=== PATIENT | female | born 2000 | race African-American/Black ===

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

== ENCOUNTER 2020-01-14 13:51 | Emergency (ER) | payer MEDICAID ==
[~2020-01-14] VITALS: Ht 157.5 cm; Wt 72.0 kg
[2020-01-14] MEDS ORDERED: SODIUM CHLORIDE 0.9% 1,000 ML IV ONE ×2 (15:47→17:00)
[2020-01-14] MEDS ORDERED: ONDANSETRON HCL 4MG/2ML INJ IV ONE ×2 (16:00)
[2020-01-14 16:08] LABS: BASOPHILS % 0.1 % (0.0-2.0); HEMOGLOBIN. 13.2 g/dL (12.0-16.0); LYMPHOCYTES % 8.8 % (20.0-50.0); MEAN CORPUSCULAR HEMOGLOBIN 31.5 pg (28.0-32.0); MEAN CORPUSCULAR VOLUME 87.9 fL (81.0-99.0); MEAN PLATELET VOLUME 9.5 fl (7.4-10.4); MONOCYTES % 3.1 % (2.0-8.0); PLATELET 186 x1000/uL (130-400); RED CELL DISTRIBUTION WIDTH 13.4 % (11.6-14.6)
[2020-01-14 16:12] LABS: CHLORIDE 104 mEq/L (98-107)
[2020-01-14 18:29] VITALS: BP 101/68
[2020-01-14 18:37] LABS: CLARITY URINE CLEAR (CLEAR); COLOR URINE YELLOW (YELLOW); KETONES URINE 4+ (NEGATIVE); LEUKOCYTE ESTERASE URINE NEGATIVE (NEGATIVE); NITRITE URINE NEGATIVE (NEGATIVE); OCCULT BLOOD URINE NEGATIVE (NEGATIVE); PH URINE 5.5 (4.5-8.0); PROTEIN URINE 1+ (NEGATIVE)
[2020-01-14 18:52] LABS: *AMPHETAMINES SCREEN URINE NEGATIVE (NEGATIVE); *BARBITURATES SCREEN URINE NEGATIVE (NEGATIVE); *BENZODIAZEPINES SCREEN URINE NEGATIVE (NEGATIVE); *COCAINE SCREEN URINE NEGATIVE (NEGATIVE); METHADONE URINE SCREEN NEGATIVE (NEGATIVE); OPIATES URINE SCREEN NEGATIVE (NEGATIVE); PHENCYCLIDINE URINE SCREEN NEGATIVE (NEGATIVE)
[2020-01-14 18:53] LABS: CANNABINOID URINE SCREEN NEGATIVE (NEGATIVE)
== END 2020-01-14 19:07 | disposition home or self-care (01) ==
LOC: ER 13:51
DX: O21.0 Mild hyperemesis gravidarum (principal); O26.891 Other specified pregnancy related conditions, first trimester; F19.10 Other psychoactive substance abuse, uncomplicated; Z3A.12 12 weeks gestation of pregnancy
CPT/HCPCS: 36415; 76801; 80053; 80305; 81003; 81025; 85025; 96361; 96374; 96376; 99284; J2405; J7030

== ENCOUNTER 2020-01-22 15:33 | Inpatient (IN) | payer MEDICAID ==
[~2020-01-22] VITALS: Ht 157.5 cm; Wt 55.8 kg
[2020-01-22] MEDS ORDERED: SODIUM CHLORIDE 0.9% 1,000 ML IV ONE (16:52)
[2020-01-22] MEDS: PYRIDOXINE HCL 50MG TABLET PO ONE ×2 (18:26→19:42)
[2020-01-22 18:47] LABS: HEMOGLOBIN. 13.8 g/dL (12.0-16.0); MEAN CORPUSCULAR HEMOGLOBIN 31.4 pg (28.0-32.0); MEAN CORPUSCULAR VOLUME 88.7 fL (81.0-99.0); MEAN PLATELET VOLUME 9.8 fl (7.4-10.4); PLATELET 218 x1000/uL (130-400); RED BLOOD CELL COUNT 4.39 mill/uL (4.2-5.4); RED CELL DISTRIBUTION WIDTH 13.9 % (11.6-14.6)
[2020-01-22 18:55] LABS: CHLORIDE 104 mEq/L (98-107); INR 1.1; PROTHROMBIN TIME 11.6 sec (9.6-11.0)
[2020-01-22 19:08] LABS: HCG SCREEN POSITIVE
[2020-01-22 19:38] LABS: CLARITY URINE CLEAR (CLEAR); COLOR URINE YELLOW (YELLOW); KETONES URINE 4+ (NEGATIVE); LEUKOCYTE ESTERASE URINE NEGATIVE (NEGATIVE); NITRITE URINE NEGATIVE (NEGATIVE); OCCULT BLOOD URINE TRACE (NEGATIVE); PH URINE 5.5 (4.5-8.0); PROTEIN URINE 1+ (NEGATIVE); SPECIFIC GRAVITY URINE 1.026 (1.005-1.030)
[2020-01-22 20:42] LABS: PLATELET ESTIMATE NORMAL
[2020-01-22] MEDS ORDERED: METOCLOPRAMIDE HCL 10MG/2ML VIAL IV ONE (21:00)
[2020-01-22] MEDS ORDERED: IPRATROPIUM/ALBUTEROL 0.5-3(2.5)MG/3ML NEB NEB PRN (22:45)
[2020-01-22] MEDS ORDERED: ACETAMINOPHEN 325MG TABLET PO PRN ×2 (22:45)
[2020-01-22] MEDS ORDERED: ONDANSETRON HCL 4MG/2ML INJ IV PRN (22:45)
[2020-01-22] MEDS ORDERED: DEXT 5%/0.9% NACL 1,000 ML IV SCH (23:00)
[2020-01-22 23:50] VITALS: BP 111/60
[2020-01-23] MEDS ORDERED: FERR325T6 MT (04:00)
[2020-01-23] MEDS ORDERED: FOLI0.4T2 MT (04:00)
[2020-01-23] MEDS: DEXT 5%/LACTATED RINGERS 1,000 ML IV SCH ×3 (06:32→23:56)
[2020-01-23 08:00] VITALS: BP 86/52
[2020-01-23] MEDS: PRENATAL VIT/FE FUMARATE/FA TABLET PO SCH (09:00)
[2020-01-23] MEDS: ONDANSETRON HCL 4MG/2ML INJ IV PRN ×2 (10:56→17:58)
[2020-01-23 10:59] LABS: BASOPHILS % 0.6 % (0.0-2.0); EOSINOPHILS % 0.2 % (0.0-5.0); HEMATOCRIT. 30.5 % (36.0-48.0); HEMOGLOBIN. 10.9 g/dL (12.0-16.0); LYMPHOCYTES % 14.2 % (20.0-50.0); MEAN CORPUSCULAR HEMOGLOBIN 31.3 pg (28.0-32.0); MEAN CORPUSCULAR VOLUME 87.3 fL (81.0-99.0); MEAN PLATELET VOLUME 9.2 fl (7.4-10.4); MONOCYTES % 7.7 % (2.0-8.0); NEUTROPHILS % 77.3 % (40.0-76.0); PLATELET 169 x1000/uL (130-400); RED BLOOD CELL COUNT 3.49 mill/uL (4.2-5.4)
[2020-01-23 11:37] LABS: CHLORIDE 111 mEq/L (98-107)
[2020-01-23 12:00] VITALS: BP 92/55
[2020-01-23 15:54] LABS: CLARITY URINE CLEAR (CLEAR); COLOR URINE DK YELLOW (YELLOW); KETONES URINE 1+ (NEGATIVE); LEUKOCYTE ESTERASE URINE NEGATIVE (NEGATIVE); NITRITE URINE NEGATIVE (NEGATIVE); OCCULT BLOOD URINE TRACE (NEGATIVE); PH URINE 5.5 (4.5-8.0); PROTEIN URINE NEGATIVE (NEGATIVE); SPECIFIC GRAVITY URINE 1.014 (1.005-1.030)
[2020-01-23 16:00] VITALS: BP 92/47
[2020-01-23 16:27] LABS: *AMPHETAMINES SCREEN URINE NEGATIVE (NEGATIVE); *BARBITURATES SCREEN URINE NEGATIVE (NEGATIVE); *BENZODIAZEPINES SCREEN URINE NEGATIVE (NEGATIVE); *COCAINE SCREEN URINE NEGATIVE (NEGATIVE)
[2020-01-23 16:28] LABS: CANNABINOID URINE SCREEN NEGATIVE (NEGATIVE); METHADONE URINE SCREEN NEGATIVE (NEGATIVE); OPIATES URINE SCREEN NEGATIVE (NEGATIVE); PHENCYCLIDINE URINE SCREEN NEGATIVE (NEGATIVE)
[2020-01-23 20:00] VITALS: BP 92/48
[2020-01-23] MEDS: POTASSIUM CHLORIDE INJ 40 MEQ in DEXT 5% WATER 500 ML IV NR ×2 (21:36→22:00)
[2020-01-24] VITALS: BP 96/45
[2020-01-24] MEDS ORDERED: POTASSIUM CHLORIDE 20MEQ TABLET SR PO SCH
[2020-01-24] MEDS: ONDANSETRON HCL 4MG/2ML INJ IV PRN ×2 (00:18→06:35)
[2020-01-24 04:00] VITALS: BP 92/47
[2020-01-24] MEDS: DEXT 5%/LACTATED RINGERS 1,000 ML IV SCH (06:36)
[2020-01-24 08:00] VITALS: BP 92/46
[2020-01-24] MEDS: PRENATAL VIT/FE FUMARATE/FA TABLET PO SCH (09:00)
[2020-01-24 09:39] VITALS: BP 92/46
== END 2020-01-24 11:20 | disposition home or self-care (01) | DRG 566 ==
LOC: ER 15:33 → 6EST 22:45 → EDBEDREQSVC 22:46 → EDBEDREQTM 22:46 → ENRESERV 23:04
PROVIDERS: ADMIT Internal Medicine; ATTEND Internal Medicine
DX: O21.1 Hyperemesis gravidarum with metabolic disturbance (principal); E80.4 Gilbert syndrome; O26.892 Other specified pregnancy related conditions, second trimester; Z3A.14 14 weeks gestation of pregnancy; Z83.3 Family history of diabetes mellitus; Z80.9 Family history of malignant neoplasm, unspecified; E86.0 Dehydration; E44.1 Mild protein-calorie malnutrition; R82.998 Other abnormal findings in urine
CPT/HCPCS: 36415; 76805; 80053; 80305; 81003; 83036; 83605; 84703; 85025; 86850; 86900; 93005; 96374; 99285; J2405; J2765; J3480; J7030; J7060; J7121

== ENCOUNTER 2020-01-31 09:21 | Emergency (ER) | payer MEDICAID ==
[~2020-01-31] VITALS: Ht 157.5 cm; Wt 57.0 kg
[~2020-01-31 09:21] MED LIST: FERR325T6 MT; FOLI0.4T2 MT
[2020-01-31 09:25] VITALS: BP 104/63
[2020-01-31] MEDS ORDERED: SODIUM CHLORIDE 0.9% 1,000 ML IV ONE ×2 (09:53→11:45)
[2020-01-31] MEDS ORDERED: ONDANSETRON HCL 4MG/2ML INJ IV ONE (10:00)
[2020-01-31 10:10] LABS: CLARITY URINE CLEAR (CLEAR); COLOR URINE DK YELLOW (YELLOW); KETONES URINE 4+ (NEGATIVE); LEUKOCYTE ESTERASE URINE NEGATIVE (NEGATIVE); NITRITE URINE NEGATIVE (NEGATIVE); OCCULT BLOOD URINE NEGATIVE (NEGATIVE); PROTEIN URINE 1+ (NEGATIVE); SPECIFIC GRAVITY URINE 1.024 (1.005-1.030)
[2020-01-31 10:41] LABS: BASOPHILS % 0.4 % (0.0-2.0); HEMATOCRIT. 38.4 % (36.0-48.0); HEMOGLOBIN. 13.7 g/dL (12.0-16.0); LYMPHOCYTES % 11.4 % (20.0-50.0); MEAN CORPUSCULAR HEMOGLOBIN 31.3 pg (28.0-32.0); MEAN CORPUSCULAR VOLUME 87.5 fL (81.0-99.0); MEAN PLATELET VOLUME 10.1 fl (7.4-10.4); MONOCYTES % 4.5 % (2.0-8.0); NEUTROPHILS % 83.7 % (40.0-76.0); PLATELET 238 x1000/uL (130-400); RED BLOOD CELL COUNT 4.39 mill/uL (4.2-5.4)
[2020-01-31 10:50] LABS: CHLORIDE 107 mEq/L (98-107)
[2020-01-31 11:13] LABS: B-HCG QUANTITATIVE 31628 mIU/mL (<3)
[2020-01-31] MEDS ORDERED: POTASSIUM CHLORIDE 20MEQ TABLET SR PO ONE (11:30)
[2020-01-31] MEDS ORDERED: MAGNESIUM/ALUMINUM HYDROXIDE/SIMETHICONE 30ML UDC PO ONE (11:45)
[2020-01-31] MEDS ORDERED: METOCLOPRAMIDE HCL 10MG/2ML VIAL IV ONE (11:45)
== END 2020-01-31 12:18 | disposition home or self-care (01) ==
LOC: ER 09:21
DX: O21.0 Mild hyperemesis gravidarum (principal); O26.892 Other specified pregnancy related conditions, second trimester; E87.6 Hypokalemia; Z3A.15 15 weeks gestation of pregnancy
CPT/HCPCS: 36415; 76805; 80053; 81003; 81025; 84702; 85025; 93005; 96374; 96375; 99285; J2405; J2765; J7030

== ENCOUNTER 2020-02-14 09:28 | Inpatient (IN) | payer MEDICAID ==
[~2020-02-14] VITALS: Ht 157.5 cm; Wt 54.4 kg
[2020-02-14] MEDS ORDERED: SODIUM CHLORIDE 0.9% 1,000 ML IV ONE ×2 (11:17→13:15)
[2020-02-14] MEDS ORDERED: ONDANSETRON HCL 4MG/2ML INJ IV STA (11:17)
[2020-02-14 11:54] LABS: CLARITY URINE CLEAR (CLEAR); COLOR URINE YELLOW (YELLOW); KETONES URINE 4+ (NEGATIVE); LEUKOCYTE ESTERASE URINE NEGATIVE (NEGATIVE); NITRITE URINE NEGATIVE (NEGATIVE); OCCULT BLOOD URINE NEGATIVE (NEGATIVE); PH URINE 5.5 (4.5-8.0); PROTEIN URINE 1+ (NEGATIVE)
[2020-02-14 11:58] LABS: BASOPHILS % 0.2 % (0.0-2.0); HEMATOCRIT. 35.3 % (36.0-48.0); HEMOGLOBIN. 12.6 g/dL (12.0-16.0); LYMPHOCYTES % 12.1 % (20.0-50.0); MEAN CORPUSCULAR HEMOGLOBIN 32.3 pg (28.0-32.0); MEAN CORPUSCULAR VOLUME 90.5 fL (81.0-99.0); MEAN PLATELET VOLUME 9.7 fl (7.4-10.4); MONOCYTES % 4.2 % (2.0-8.0); NEUTROPHILS % 83.5 % (40.0-76.0); PLATELET 197 x1000/uL (130-400); RED CELL DISTRIBUTION WIDTH 14.2 % (11.6-14.6)
[2020-02-14 12:02] LABS: CHLORIDE 104 mEq/L (98-107)
[2020-02-14 12:08] LABS: INR 1.1; PROTHROMBIN TIME 11.1 sec (9.6-11.0)
[2020-02-14 13:08] LABS: *BENZODIAZEPINES SCREEN URINE NEGATIVE (NEGATIVE); CANNABINOID URINE SCREEN NEGATIVE (NEGATIVE); METHADONE URINE SCREEN NEGATIVE (NEGATIVE); OPIATES URINE SCREEN NEGATIVE (NEGATIVE); PHENCYCLIDINE URINE SCREEN NEGATIVE (NEGATIVE)
[2020-02-14 13:09] LABS: *AMPHETAMINES SCREEN URINE NEGATIVE (NEGATIVE); *BARBITURATES SCREEN URINE NEGATIVE (NEGATIVE)
[2020-02-14 13:13] LABS: HCG SCREEN POSITIVE
[2020-02-14] MEDS ORDERED: ONDANSETRON HCL 4MG/2ML INJ IV ONE (13:15)
[2020-02-14 13:16] LABS: *COCAINE SCREEN URINE NEGATIVE (NEGATIVE)
[2020-02-14 16:50] VITALS: BP 104/54
[2020-02-14 16:51] VITALS: BP 104/54
[2020-02-14] MEDS ORDERED: MAGNESIUM/ALUMINUM HYDROXIDE/SIMETHICONE 30ML UDC PO PRN (17:15)
[2020-02-14] MEDS ORDERED: GUAIFENESIN 200MG/10ML SUGAR FREE UDC PO PRN (17:15)
[2020-02-14] MEDS ORDERED: CLONIDINE 0.1MG TABLET PO PRN (17:15)
[2020-02-14] MEDS ORDERED: ACETAMINOPHEN 325MG TABLET PO PRN (17:15)
[2020-02-14] MEDS ORDERED: DOCUSATE SODIUM 100MG CAPSULE PO PRN (17:15)
[2020-02-14] MEDS: DEXT 5%/0.45% NACL 1000ML 1,000 ML IV SCH (18:01)
[2020-02-14] MEDS: METOCLOPRAMIDE HCL 10MG/2ML VIAL IV SCH (18:01)
[2020-02-14 20:00] VITALS: BP 88/41
[2020-02-14] MEDS: SODIUM CHLORIDE 0.9% INJ 3ML FLUSH IVF SCH (21:50)
[2020-02-15] VITALS (7 sets, daily range): BP systolic 79–90; BP diastolic 31–59
[2020-02-15] MEDS: METOCLOPRAMIDE HCL 10MG/2ML VIAL IV SCH ×3 (00:16→12:12)
[2020-02-15] MEDS: DEXT 5%/0.45% NACL 1000ML 1,000 ML IV SCH ×2 (03:21→12:12)
[2020-02-15] MEDS: SODIUM CHLORIDE 0.9% INJ 3ML FLUSH IVF SCH ×2 (05:53→12:13)
[2020-02-15 16:07] LABS: BASOPHILS % 0.2 % (0.0-2.0); EOSINOPHILS % 0.6 % (0.0-5.0); HEMATOCRIT. 27.5 % (36.0-48.0); HEMOGLOBIN. 9.8 g/dL (12.0-16.0); LYMPHOCYTES % 21.9 % (20.0-50.0); MEAN CORPUSCULAR HEMOGLOBIN 32.3 pg (28.0-32.0); MEAN PLATELET VOLUME 9.7 fl (7.4-10.4); MONOCYTES % 6.4 % (2.0-8.0); NEUTROPHILS % 70.9 % (40.0-76.0); PLATELET 148 x1000/uL (130-400); RED BLOOD CELL COUNT 3.02 mill/uL (4.2-5.4); RED CELL DISTRIBUTION WIDTH 14.4 % (11.6-14.6)
[2020-02-15 16:26] LABS: CHLORIDE 108 mEq/L (98-107)
== END 2020-02-15 16:05 | disposition home or self-care (01) | DRG 566 ==
LOC: ER 09:28 → EDBEDREQ 13:16 → EDBEDREQTM 13:16 → 5WST 14:15 → EDBEDREQTM 14:17 → EDBEDREQ 14:17 → ENRESERV 15:06
PROVIDERS: ADMIT Internal Medicine; ATTEND Internal Medicine
DX: O21.1 Hyperemesis gravidarum with metabolic disturbance (principal); O99.282 Endocrine, nutritional and metabolic diseases complicating pregnancy, second trimester; O26.612 Liver and biliary tract disorders in pregnancy, second trimester; O23.42 Unspecified infection of urinary tract in pregnancy, second trimester; E86.0 Dehydration; K80.20 Calculus of gallbladder without cholecystitis without obstruction; Z3A.14 14 weeks gestation of pregnancy
CPT/HCPCS: 36415; 76700; 80053; 80305; 81003; 83605; 84703; 85025; 86850; 86900; 93005; 96374; 99285; J2405; J2765; J7030

== ENCOUNTER 2020-02-21 11:20 | Emergency (ER) | payer MEDICAID ==
[~2020-02-21] VITALS: Ht 157.5 cm; Wt 55.0 kg
[2020-02-21] MEDS ORDERED: METOCLOPRAMIDE HCL 10MG/2ML VIAL IV ONE (11:45)
[2020-02-21] MEDS ORDERED: SODIUM CHLORIDE 0.9% 1,000 ML IV ONE ×3 (11:50→13:44)
[2020-02-21 12:23] LABS: BASOPHILS % 0.3 % (0.0-2.0); EOSINOPHILS % 0.1 % (0.0-5.0); HEMATOCRIT. 34.8 % (36.0-48.0); HEMOGLOBIN. 12.3 g/dL (12.0-16.0); LYMPHOCYTES % 13.6 % (20.0-50.0); MEAN CORPUSCULAR HEMOGLOBIN 32.4 pg (28.0-32.0); MEAN CORPUSCULAR VOLUME 91.4 fL (81.0-99.0); MEAN PLATELET VOLUME 9.6 fl (7.4-10.4); MONOCYTES % 3.7 % (2.0-8.0); NEUTROPHILS % 82.3 % (40.0-76.0); PLATELET 197 x1000/uL (130-400); RED BLOOD CELL COUNT 3.81 mill/uL (4.2-5.4); RED CELL DISTRIBUTION WIDTH 14.5 % (11.6-14.6)
[2020-02-21 12:35] LABS: CHLORIDE 103 mEq/L (98-107)
[2020-02-21 12:57] LABS: CLARITY URINE CLEAR (CLEAR); COLOR URINE YELLOW (YELLOW); KETONES URINE 4+ (NEGATIVE); LEUKOCYTE ESTERASE URINE NEGATIVE (NEGATIVE); NITRITE URINE NEGATIVE (NEGATIVE); OCCULT BLOOD URINE NEGATIVE (NEGATIVE); PH URINE 5.5 (4.5-8.0); PROTEIN URINE 1+ (NEGATIVE); SPECIFIC GRAVITY URINE 1.029 (1.005-1.030)
[2020-02-21 13:10] LABS: B-HCG QUANTITATIVE 17195 mIU/mL (<3)
[2020-02-21] MEDS ORDERED: ONDANSETRON HCL 4MG/2ML INJ IV STA (13:45)
[2020-02-21] MEDS ORDERED: MAGNESIUM/ALUMINUM HYDROXIDE/SIMETHICONE 30ML UDC PO STA (13:45)
[2020-02-21] MEDS ORDERED: DEXT 5%/0.45% NACL 500ML 500 ML IV ONE (13:45)
[2020-02-21 15:09] VITALS: BP 109/70
== END 2020-02-21 15:12 | disposition home or self-care (01) ==
LOC: ER 11:20
DX: O21.0 Mild hyperemesis gravidarum (principal); O23.42 Unspecified infection of urinary tract in pregnancy, second trimester; Z3A.15 15 weeks gestation of pregnancy
CPT/HCPCS: 36415; 80053; 81003; 83690; 84702; 85025; 93005; 96361; 96374; 96375; 99284; J2405; J2765; J7030

== ENCOUNTER 2020-03-11 12:55 | Emergency (ER) | payer MEDICAID ==
[~2020-03-11] VITALS: Ht 157.5 cm; Wt 56.0 kg
[2020-03-11] MEDS ORDERED: METOCLOPRAMIDE HCL 10MG/2ML VIAL IV ONE (13:45)
[2020-03-11] MEDS ORDERED: SODIUM CHLORIDE 0.9% 1,000 ML IV ONE (13:45)
[2020-03-11 14:10] LABS: BASOPHILS % 0.2 % (0.0-2.0); EOSINOPHILS % 0.3 % (0.0-5.0); HEMATOCRIT. 31.5 % (36.0-48.0); HEMOGLOBIN. 10.9 g/dL (12.0-16.0); LYMPHOCYTES % 17.2 % (20.0-50.0); MEAN CORPUSCULAR HEMOGLOBIN 32.6 pg (28.0-32.0); MEAN CORPUSCULAR VOLUME 93.9 fL (81.0-99.0); MEAN PLATELET VOLUME 9.7 fl (7.4-10.4); MONOCYTES % 5.6 % (2.0-8.0); NEUTROPHILS % 76.7 % (40.0-76.0); PLATELET 150 x1000/uL (130-400); RED BLOOD CELL COUNT 3.36 mill/uL (4.2-5.4); RED CELL DISTRIBUTION WIDTH 13.1 % (11.6-14.6)
[2020-03-11 14:22] LABS: CHLORIDE 109 mEq/L (98-107)
[2020-03-11 15:42] VITALS: BP 106/47
[2020-03-11 15:50] LABS: CLARITY URINE CLEAR (CLEAR); COLOR URINE YELLOW (YELLOW); KETONES URINE 3+ (NEGATIVE); LEUKOCYTE ESTERASE URINE 1+ (NEGATIVE); NITRITE URINE NEGATIVE (NEGATIVE); OCCULT BLOOD URINE NEGATIVE (NEGATIVE); PH URINE 5.5 (4.5-8.0); PROTEIN URINE NEGATIVE (NEGATIVE); SPECIFIC GRAVITY URINE 1.018 (1.005-1.030); UROBILINOGEN URINE 0.2 E.U./dL (0.2-1.0)
== END 2020-03-11 15:46 | disposition home or self-care (01) ==
LOC: ER 13:19
DX: O21.0 Mild hyperemesis gravidarum (principal); Z3A.20 20 weeks gestation of pregnancy
CPT/HCPCS: 36415; 76805; 80053; 81003; 81025; 85025; 93005; 96361; 96374; 99285; J2765; J7030

== ENCOUNTER 2020-04-15 10:45 | Emergency (ER) | payer MEDICAID ==
[~2020-04-15] VITALS: Ht 162.6 cm; Wt 53.0 kg
[2020-04-15] MEDS ORDERED: SODIUM CHLORIDE 0.9% 1,000 ML IV ONE (11:30)
[2020-04-15] MEDS ORDERED: ONDANSETRON HCL 4MG/2ML INJ IV ONE (11:30)
[2020-04-15 12:22] LABS: BASOPHILS % 0.4 % (0.0-2.0); EOSINOPHILS % 0.4 % (0.0-5.0); HEMATOCRIT. 30.4 % (36.0-48.0); HEMOGLOBIN. 10.7 g/dL (12.0-16.0); LYMPHOCYTES % 18.4 % (20.0-50.0); MEAN CORPUSCULAR VOLUME 91.5 fL (81.0-99.0); MONOCYTES % 7.2 % (2.0-8.0); NEUTROPHILS % 73.6 % (40.0-76.0); PLATELET 128 x1000/uL (130-400); RED BLOOD CELL COUNT 3.33 mill/uL (4.2-5.4)
[2020-04-15 12:31] LABS: CLARITY URINE CLEAR (CLEAR); COLOR URINE YELLOW (YELLOW); KETONES URINE 4+ (NEGATIVE); LEUKOCYTE ESTERASE URINE TRACE (NEGATIVE); NITRITE URINE NEGATIVE (NEGATIVE); OCCULT BLOOD URINE NEGATIVE (NEGATIVE); PH URINE 6.5 (4.5-8.0); PROTEIN URINE NEGATIVE (NEGATIVE); SPECIFIC GRAVITY URINE 1.018 (1.005-1.030)
[2020-04-15 12:36] LABS: CHLORIDE 108 mEq/L (98-107)
[2020-04-15 12:58] LABS: B-HCG QUANTITATIVE 7307 mIU/mL (<3)
[2020-04-15] MEDS ORDERED: POTASSIUM CHLORIDE 20MEQ TABLET SR PO ONE (13:45)
[2020-04-15 15:51] VITALS: BP 99/65
== END 2020-04-15 15:58 | disposition home or self-care (01) ==
LOC: ER 10:45
DX: O21.0 Mild hyperemesis gravidarum (principal); O23.42 Unspecified infection of urinary tract in pregnancy, second trimester; Z3A.25 25 weeks gestation of pregnancy
CPT/HCPCS: 36415; 76805; 80053; 81003; 81025; 82962; 84702; 85025; 87086; 93005; 96374; 99285; J2405; J7030

== ENCOUNTER 2022-06-15 12:18 | Emergency (ER) | payer MEDICAID ==
[~2022-06-15] VITALS: Ht 157.5 cm; Wt 53.0 kg
[~2022-06-15 12:18] MED LIST changes: -FOLI0.4T2 MT; +FOLI0.4T6 MT; +IBUP-2030 PO
[2022-06-15 12:42] VITALS: BP 109/61
[2022-06-15] MEDS ORDERED: VALA10002 PO (15:19)
[2022-06-15] MEDS ORDERED: CHLO473M2 MT (15:19)
[2022-06-15 15:24] LABS: CLARITY URINE CLEAR (CLEAR); COLOR URINE DARK YELLOW (YELLOW); KETONES URINE 3+ (NEGATIVE); LEUKOCYTE ESTERASE URINE TRACE (NEGATIVE); NITRITE URINE NEGATIVE (NEGATIVE); OCCULT BLOOD URINE NEGATIVE (NEGATIVE); PROTEIN URINE 1+ (NEGATIVE); SPECIFIC GRAVITY URINE 1.031 (1.005-1.030)
[2022-06-18 09:11] LABS: HIV SCREEN 4G Non Reactive (Non Reactive)
[2022-06-20 04:08] LABS: NEISSERIA GONORRHOEAE NAA Negative (Negative)
== END 2022-06-15 17:04 | disposition home or self-care (01) ==
LOC: ER 12:18
DX: Z20.2 Contact with and (suspected) exposure to infections with a predominantly sexual mode of transmission (principal); N39.0 Urinary tract infection, site not specified
CPT/HCPCS: 81003; 87389; 87491; 87591; 99283

== ENCOUNTER 2023-07-02 14:19 | Emergency (ER) | payer OTHER ==
[~2023-07-02] VITALS: Ht 152.4 cm; Wt 58.0 kg
[~2023-07-02 14:19] MED LIST changes: +CHLO473M2 MT; +VALA10002 PO
[2023-07-02 14:36] VITALS: BP 96/43; RESP 20; TEMP 98.2; O2SAT 100
[2023-07-02 14:37] VITALS: PULSE 81
[2023-07-02 14:59] LABS: CLARITY URINE CLEAR (CLEAR); COLOR URINE YELLOW (YELLOW); GLUCOSE URINE NEGATIVE (NEGATIVE); KETONES URINE NEGATIVE (NEGATIVE); LEUKOCYTE ESTERASE URINE NEGATIVE (NEGATIVE); NITRITE URINE NEGATIVE (NEGATIVE); OCCULT BLOOD URINE NEGATIVE (NEGATIVE); PROTEIN URINE NEGATIVE (NEGATIVE); SPECIFIC GRAVITY URINE 1.021 (1.005-1.030)
[2023-07-02 15:25] LABS: BASOPHILS % 0.4 % (0.0-2.0); EOSINOPHILS % 1.4 % (0.0-5.0); HEMATOCRIT. 33.5 % (36.0-48.0); HEMOGLOBIN. 10.9 g/dL (12.0-16.0); LYMPHOCYTES % 40.8 % (20.0-50.0); MEAN CORPUSCULAR HEMOGLOBIN 28.4 pg (28.0-32.0); MEAN CORPUSCULAR HGB CONC 32.6 g/dL (31.0-37.0); MEAN CORPUSCULAR VOLUME 86.9 fL (81.0-99.0); MEAN PLATELET VOLUME 10.3 fl (7.4-10.4); NEUTROPHILS % 50.4 % (40.0-76.0); PLATELET 159 x1000/uL (130-400); RED BLOOD CELL COUNT 3.85 mill/uL (4.2-5.4); RED CELL DISTRIBUTION WIDTH 13.6 % (11.6-14.6); WHITE BLOOD COUNT 3.6 x1000/uL (4.5-11.0)
[2023-07-02 15:58] LABS: ALANINE AMINOTRANSFERASE < 7 IU/L (10-49); ALBUMIN 4.3 g/dL (3.2-4.8); ASPARTATE AMINOTRANSFERASE 13 IU/L (<34); BILIRUBIN TOTAL 1.6 mg/dL (0.1-1.0); CALCIUM 9.3 mg/dL (8.7-10.4); CARBON DIOXIDE 25 mEq/L (21-32); CHLORIDE 109 mEq/L (98-107); CREATININE 0.6 mg/dL (0.6-1.0); GLUCOSE 88 mg/dL (70-105); POTASSIUM 4.1 mEq/L (3.5-5.1); PROTEIN TOTAL 7.1 g/dL (6.0-8.3); SODIUM 139 mEq/L (136-145); UREA NITROGEN BLOOD 6 mg/dL (9-23)
[2023-07-02 19:43] LABS: UCG SCREEN NEGATIVE
[2023-07-02] MEDS ORDERED: FAMO-135 MT (20:00)
== END 2023-07-02 21:15 | disposition home or self-care (01) ==
LOC: ER 14:19
DX: K29.70 Gastritis, unspecified, without bleeding (principal); D64.9 Anemia, unspecified; Z79.899 Other long term (current) drug therapy
CPT/HCPCS: 36415; 76705; 80053; 81003; 81025; 85025; 99284